=== PATIENT | female | born 1940 | race Caucasian/White ===

== ENCOUNTER → 2018-05-13 | Outpatient (CLI) | payer OTHER | LOC: FIMAGING 18:47 | PROVIDERS: ATTEND Physician Assistant | DX: M51.26 Other intervertebral disc displacement, lumbar region (principal); M51.27 Other intervertebral disc displacement, lumbosacral region; M48.061 Spinal stenosis, lumbar region without neurogenic claudication; M48.07 Spinal stenosis, lumbosacral region; M41.86 Other forms of scoliosis, lumbar region ==

== ENCOUNTER → 2018-08-04 | Outpatient (CLI) | payer OTHER | LOC: FIMAGING 14:28 | PROVIDERS: ATTEND Physician Assistant | DX: R06.02 Shortness of breath (principal); D64.9 Anemia, unspecified; Z79.899 Other long term (current) drug therapy ==

== ENCOUNTER 2018-08-24 11:54 | Day surgery (SDC) | payer OTHER ==
[2018-08-24] MEDS ORDERED: ASPIRIN EC 325 MG TAB PO ONE (12:02)
[2018-08-24] MEDS ORDERED: FAMOTIDINE 20 MG TAB PO ONE (12:02)
[2018-08-24] MEDS ORDERED: NS 1,000 ML IV ONE (12:02)
[2018-08-24] MEDS ORDERED: diphenhydrAMINE 25 MG CAP PO ONE (12:02)
[2018-08-24] MEDS ORDERED: DIAZEPAM 5 MG TAB PO ONE (12:02)
[2018-08-24] MEDS ORDERED: fentaNYL 100 MCG/2 ML INJ ONE (12:33)
[2018-08-24] MEDS ORDERED: LIDOCAINE 1% 300 MG/30 ML SDV ONE (12:33)
[2018-08-24] MEDS ORDERED: IOPAMIDOL (ISOVUE-370) 150 ML BTL IV ONE (12:34)
[2018-08-24] MEDS ORDERED: MIDAZOLAM 2 MG/2 ML VIAL ONE (12:34)
[2018-08-24 13:06] LABS: PLATELET COUNT 294 10^3/uL (150-400)
[2018-08-24 13:21] LABS: PROTIME(PATIENT) 13.4 SEC (12.0-15.0)
--- NOTE | 2018-08-24 14:08 | PDHPUP ---
History & Physical Update H&P update statement: This history and physical update is based on an assessment of the patient which was completed after admission or registration (within 24 hours), but prior to the surgery/procedure. H&P update: H&P reviewed & patient examined, no change in patient's condition since H&P completed
--- NOTE | 2018-08-24 14:08 | PDPROPOC ---
Sedation Plan of Care Sedation Plan of Care: vital signs stable, mental status noted, patient educated of risks, benefits, alternatives, patient can tolerate sedation ASA Classification: ASA 2 Planned drugs: fentanyl, midazolam Mallampati Score: Class 2 Mallampati Reference Image: Patient passed 3-3-2 rule?: Yes
[2018-08-24] MEDS ORDERED: NITROGLYCERIN 0.4 MG BTL SL PRN (15:25)
[2018-08-24] MEDS ORDERED: ATROPINE SULFATE 1 MG/10 ML SYR IVP PRN (15:25)
[2018-08-24] MEDS ORDERED: ONDANSETRON 4 MG/2 ML VIAL IVP PRN (15:25)
--- NOTE | 2018-08-24 18:32 | CPIP ---
DATE OF PROCEDURE: 08/24/2018 PROCEDURE: 1. Coronary angiography. 2. Left ventriculography. INDICATION: 1. Dyspnea on exertion concerning for class III angina. 2. Abnormal nuclear stress test, which would be intermediate to high risk. ACCESS: Patient was prepped and draped in sterile fashion. 1% lidocaine was used to anesthetize the right inguinal region. A 6-Eth[place]ian introducer sheath was placed selectively into the right common fe moral artery via modified Seldinger technique. CORONARY ANGIOGRAPHY: A 6-[place] JL4 was advanced to the left main coronary artery and images obtain ed. The left main coronary artery bifurcated into an LAD and circumflex coronary arteries. The left main coronary artery had an angulated takeoff, but appeared free of any significant disease. The le ft anterior descending coronary artery had mild luminal irregularities throughout. There was no sten osis greater than 20%. The circumflex coronary artery is a moderate-sized vessel. The circumflex co ronary artery had mild luminal irregularities throughout. There was no stenosis greater than 15%. A 6-[place] JR4 was advanced to the right coronary artery and images obtained. The right coronary dayna ry was dominant. The right coronary artery was large. The right coronary artery had a discrete 20% stenosis in the proximal vessel and a long segmental 20% stenosis in the posterior descending coronar y artery. LEFT VENTRICULOGRAPHY: A 6-Eth[place]ian pigtail catheter was advanced in the left ventricle and images obt ained. Left ventricle was normal in size with reduced systolic function. The estimated ejection fra ction was 35% to 40%. Left ventricular end-diastolic pressure was elevated at 20 mmHg. COMPLICATIONS: None. CONCLUSIONS: 1. Mild coronary artery disease without flow limitation. 2. Reduced left ventricular systolic function with an estimated ejection fraction 35% to 40%. 3. Plan is for medical management. /[id number]/MODL
--- NOTE | 2018-08-25 06:14 | CPEKG ---
Test Reason : OPEN Blood Pressure : / mmHG Vent. Rate : 065 BPM Atrial Rate : 065 BPM P-R Int : 168 ms QRS Dur : 096 ms QT Int : 424 ms P-R-T Axes : 081 034 101 degrees QTc Int : 441 ms Sinus rhythm LVH with secondary repolarization abnormality Confirmed by Selvin Hartmann ([id number]) on 08/25/2018 6:13:56 AM Referred By: Confirmed By:Selvin Hartmann
== END 2018-08-24 19:12 | disposition home or self-care (01) ==
LOC: FCATH 11:54
PROVIDERS: ATTEND Internal Medicine Cardiovascular Disease
DX: I25.10 Atherosclerotic heart disease of native coronary artery without angina pectoris (principal); R94.39 Abnormal result of other cardiovascular function study; R06.02 Shortness of breath; I44.7 Left bundle-branch block, unspecified; I35.1 Nonrheumatic aortic (valve) insufficiency; I10 Essential (primary) hypertension; E78.5 Hyperlipidemia, unspecified; M85.89 Other specified disorders of bone density and structure, multiple sites; F32.9 Major depressive disorder, single episode, unspecified; Z79.82 Long term (current) use of aspirin; Z87.891 Personal history of nicotine dependence; Z80.3 Family history of malignant neoplasm of breast; Z82.49 Family history of ischemic heart disease and other diseases of the circulatory system; Z96.651 Presence of right artificial knee joint
CPT/HCPCS: J1644; J2250; J3010; Q9967

== ENCOUNTER → 2018-11-16 | Outpatient (CLI) | payer OTHER | LOC: FIMAGING 14:27 | PROVIDERS: ATTEND Nurse Practitioner Adult Health | DX: R91.8 Other nonspecific abnormal finding of lung field (principal); R91.1 Solitary pulmonary nodule ==

== ENCOUNTER → 2018-11-30 | Outpatient (CLI) | payer OTHER | LOC: FIMAGING 13:40 | PROVIDERS: ATTEND Nurse Practitioner Adult Health | DX: R91.8 Other nonspecific abnormal finding of lung field (principal); K44.9 Diaphragmatic hernia without obstruction or gangrene; I77.810 Thoracic aortic ectasia ==